=== PATIENT | male | born 1945 | race Caucasian/White ===

== ENCOUNTER 2018-10-01 10:07 | Day surgery (SDC) | payer BC ==
[2018-10-01] MEDS ORDERED: PROPOFOL 20 ML (11:48)
== END 2018-10-01 12:30 | disposition home or self-care (01) ==
LOC: GIL 10:07
DX: K29.50 Unspecified chronic gastritis without bleeding (principal); K20.8 Other esophagitis
CPT/HCPCS: 43239; 88305; 88312